=== PATIENT | female | born 1980 | race Caucasian/White ===

== ENCOUNTER 2019-08-05 19:50 | Emergency (ER) | payer OTHER, SELFPAY ==
[2019-08-05 19:51] VITALS: BP 148/93; PULSE 90; RESP 18; TEMP 36.6; O2SAT 97; BMI 29.9
--- NOTE | 2019-08-05 20:24 | CT_ITS ---
STUDY: CT BRAIN WITHOUT CONTRAST REASON FOR EXAM: Female, 39 years old. Headache for 2 weeks. Sinus pressure. RADIATION DOSAGE (If Supplied By Facility): CTDIvol = ( 44.99 ) mGy, DLP = ( 796.11 ) mGycm TECHNIQUE: Transaxial CT imaging of the brain was performed without administration of intravenous contrast material. Individualized dose optimization techniques were used for this CT. COMPARISON: No relevant priors. FINDINGS: Normal soft tissue structures. Normal calvarium. Normal size ventricles and extra-axial spaces for the patient's age. Normal white matter tracts of the cerebral hemispheres. Normal basal ganglia and thalami. Normal brainstem. Normal cerebellum. There is no intracranial hemorrhage. There are no findings of an acute ischemic infarction. Normal visualized paranasal sinuses. CT/Brain/Head without Contrast IMPRESSION: Normal unenhanced CT scan of the brain. Electronically Signed: Solo Garcia DO at 21:26 EDT Tel [phone], Service support ,
[2019-08-05] MEDS: 0.9% Normal Saline 1,000 ML 1000 ML IV (20:51)
[2019-08-05] MEDS: DiphenhydrAMINE 50 MG/ML Syringe 25 MG IV (20:51)
[2019-08-05] MEDS: Ketorolac 30 MG/ML Syringe IV (20:51)
[2019-08-05] MEDS: Metoclopramide 10 MG/2 ML Vial IV (20:51)
--- NOTE | 2019-08-05 21:51 | ED.DCSUM_ITS ---
- ER Visit Summary Date of Service: 08/05/19 Chief Complaint: Headache [] History of Present Illness: The patient is a 39 F [presents to the emergency department with a headache that she is had for about a week and a half. Patient states the pain came on gradually and just would come and go initially but then more continuous over the last week. Patient rates her headache as an 8 out of 10. Patient use Tylenol but does not seem to help her headache. She is had no nausea or vomiting with it. She does complain of some photophobia. Patient does not typically get headaches like this so therefore it is the worst headache that she is had. She denies any fevers or head injuries. Nobody else at home has headache and there is no concern for carbon monoxide poisoning. She describes the headache as throbbing in both temples and also to the back of her head. Patient works as a teacher. No family history of brain tumors although she states her grandmother had a brain aneurysm.] Physical Examination: [HEENT-PERRLA, EOMI. Cranial nerves II through XII grossly intact. TMs clear. Mucous membranes moist. No adenopathy. Cardiovascular-regular rate and rhythm without murmur or ectopy Lungs-clear to auscultation, chest wall stable without crepitus or subcu emphysema Abdomen-normoactive bowel sounds, soft, nontender, no rebound or rigidity, no peritoneal signs. Neuro erht-hypqil-dkmu and heel grace testing within normal limits, negative Romberg, negative pronator drift, fundi benign Extremities-intact ?4, normal range of motion, normal pulses, atraumatic] Test Results: [CT scan of the brain without contrast was normal.] Emergency Department Course and Treatment: [She was medicated with Reglan, Benadryl, and Toradol and she had some relief with that. She now rates her headache as a 5 or 6 out of 10.] Treatment Plan: [She will be referred to neurology for follow-up. Patient advised to follow-up with her primary care physician as well. She is advised to return if worsening pain, vomiting, or condition should worsen anyway.] Disposition: [Discharged home in stable condition] Impression: [Cephalgia] This note was generated with [employer] dictation software. It may contain incorrect words, spelling, and punctuation that were not noted in review of the chart prior to signing ED Disposition - Plan for ED Patient: Referrals: Asif Jarrell DO [Primary Care Provider] -
--- NOTE | 2019-08-05 21:54 | ED.DEP ---
ED Disposition - Plan for ED Patient: Instructions: HEADACHE, Unspecified Prescriptions: Naproxen [Naprosyn] 500 mg PO BID PRN #20 tab Prescription Printed Referrals: Asif Jarrell DO [Primary Care Provider] - 3-5 Days Victor Manuel Powell MD [STAFF PHYSICIAN] - 3-5 Days
[2019-08-05 22:10] VITALS: BP 121/61; PULSE 86; RESP 18; O2SAT 97
== END 2019-08-05 22:10 | disposition short-term general hospital (02) ==
PROVIDERS: Emergency Provider Emergency Medicine; Family Provider Preventive Medicine Occupational Medicine; PCP Preventive Medicine Occupational Medicine
DX: R51 Headache (principal); H53.149 Visual discomfort, unspecified
CPT/HCPCS: 70450; 96361; 96374; 96375; 99283; A4216

== ENCOUNTER → 2023-01-09 | Outpatient (CLI) | payer OTHER, SELFPAY ==
[2023-01-09 17:05] LABS: Absolute Lymphocyte Count 2.36 X10^3/uL (0.83-4.51); Absolute Neutrophil Count 7.7 X10^3/uL (2.0-7.7); Basophil# 0.08 X10^3/uL; Basophil% 0.7 % (0-1); Eosinophil# 0.07 X10^3/uL; Eosinophils% 0.6 % (0-5); Hematocrit 40.1 % (37-47); Hemoglobin 13.6 g/dL (12.0-15.0); Lymphocyte # 2.36 X10^3/ul (0.83-4.51); Lymphocyte % 21.1 % (19-41); Mean Corp Hgb Conc 33.9 g/dL (32-36); Mean Corpuscular Hgb 31.1 pg (27.0-32.0); Mean Corpuscular Volume 91.6 fL (81-99); Mean Platelet Vol. 9.7 fl (6.2-12.0); Monocyte# 0.95 X10^3/uL; Monocyte% 8.5 % (0-10); NRBC Flagged by Analyzer 0 % (0-5); Neutrophil # 7.69 X10^3/uL (2.7-7.7); Neutrophil % 68.7 % (47-70); Platelet Count 516 K/mm3 (150-450); RBC Distribution Width CV 12.9 % (11.6-14.6); RBC Distribution Width SD 43.6 fl (35.1-43.9); Red Blood Count 4.38 M/mm3 (4.2-5.4); White Blood Count 11.2 K/mm3 (4.4-11.0)
[2023-01-09 17:31] LABS: ALB/GLOB Ratio 1.3 RATIO (0.9-2.4); AST(SGOT) 16 U/L (15-37); Alanine Aminotransfer ALT/SGPT 22 U/L (13-56); Albumin, Serum 3.7 g/dL (3.2-5.0); Alkaline Phosphatase 66 U/L (45-117); Anion Gap 7 (5-15); BUN 11 mg/dL (7-18); BUN/Creat Ratio 12.8 RATIO (10-20); Calcium,Total 8.3 mg/dL (8.5-10.1); Chloride 105 mmol/L (98-107); Cholesterol 155 mg/dL (200); Creatinine, Serum 0.86 mg/dL (0.55-1.02); EST Glomerular Filtration Rate 77 mL/min (>60); Est Glom Filt Rate - Afr Amer 94 mL/min (>60); Globulin 2.9 g/dL (2.2-4.2); Glucose 104 mg/dL (74-106); High Density Lipoprotein 44 mg/dL; Potassium 3.7 mmol/L (3.5-5.1); Protein, Total 6.6 g/dL (6.4-8.2); Sodium Level 139 mmol/L (136-145); Thyroid Stim Hormone (TSH) 0.77 uIU/mL (0.358-3.74); Triglycerides 281 mg/dL; Very Low Density Lipoprotein 56 mg/dL (5-40)
[2023-01-09 17:38] LABS: Vitamin B12 387 pg/mL (211-911); Vitamin D,25 Hydroxy 39.8 ng/mL
== END | disposition home or self-care (01) ==
PROVIDERS: PCP Nurse Practitioner Family; Referring Provider Nurse Practitioner Family; Visit Provider Nurse Practitioner Family
DX: Z00.00 Encounter for general adult medical examination without abnormal findings (principal); E56.9 Vitamin deficiency, unspecified
CPT/HCPCS: 36415; 80053; 80061; 82306; 82607; 84443; 85025